=== PATIENT | female | born 1975 | race African-American/Black ===

== ENCOUNTER 2017-03-15 09:44 | Day surgery (SDC) | payer BC, OTHER ==
[2017-03-14 15:32] VITALS: BMI 36.0
[2017-03-15] MEDS ORDERED: PROPOFOL 20 ML ONE (10:36)
[2017-03-15] MEDS ORDERED: ROCURONIUM BROMIDE 50 MG/5 ML VIAL ONE ×2 (10:36)
[2017-03-15] MEDS ORDERED: MIDAZOLAM HCL 2 MG/2 ML SINGLE DOSE VIAL ONE (10:36)
[2017-03-15] MEDS ORDERED: fentaNYL CITRATE 250 MCG/5 ML VIAL ONE (10:36)
[2017-03-15] MEDS ORDERED: BUPIVACAINE HCL/PF 0.5% (5MG/ML) 10 ML VIAL ONE (11:09)
--- NOTE | 2017-03-15 11:16 | PREOP ---
DATE OF ADMISSION: 03/15/2017 CHIEF COMPLAINT: Morbid obesity. HISTORY OF PRESENT ILLNESS: The patient is a 41-year-old woman with a history of morbid obesity for many years despite multiple attempts at dietary weight loss. She also has some hypertension associated with her obesity. She received nutritional, psychological, and cardiac evaluation and clearance prior to undergoing an elective laparoscopic gastric band surgery. PAST MEDICAL HISTORY: Significant for hypertension. MEDICATIONS: Include Bystolic, losartan, potassium. ALLERGIES: She has no known allergies. REVIEW OF SYSTEMS: Neurologic: Within normal limits. Cardiac: Within normal limits. Lungs: Within normal limits. Gastrointestinal: Within normal limits. Musculoskeletal: Within normal limits. PHYSICAL EXAMINATION: General: Awake and alert in no acute distress. HEENT: No masses palpated. Lungs: Clear bilaterally. Heart: Regular sinus rhythm. Abdomen: Positive for obesity. Soft, nontender on palpation in all quadrants. Extremities: No signs of any swelling. No edema. The patient had elevated liver function tests on admission significant for fatty liver. IMPRESSION: Morbid obesity. PLAN: To OR for laparoscopic gastric band. Sommer [id number]
[2017-03-15] MEDS ORDERED: ceFAZolin SODIUM 1 GM VIAL IVPB ONE (11:37)
[2017-03-15] MEDS ORDERED: NEOSTIGMINE METHYLSULFATE 0.5 MG/ML - 10 ML MDV ONE (12:11)
[2017-03-15] MEDS ORDERED: BUPIVACAINE HCL/PF (5 MG/ML) 30 ML VIAL IJ ONE (12:23)
[2017-03-15] MEDS ORDERED: TRIMETHOBENZAMIDE HCL 200MG/2ML INJ IM PRN (12:36)
[2017-03-15] MEDS ORDERED: ONDANSETRON 4 MG/2 ML VIAL IVPUSH PRN ×2 (12:36→13:03)
[2017-03-15] MEDS ORDERED: ENOXAPARIN NA (PORCINE) 40 MG/0.4 ML DISP.SYRIN SQ ONE ×3 (12:36→14:06)
[2017-03-15] MEDS ORDERED: HYDROmorphone HCL CARPU-JECT 1 MG/1 ML DISP.SYRIN IVPB PRN (12:38)
[2017-03-15] MEDS ORDERED: SODIUM CHLORIDE 1,000 ML IV SCH (12:45)
--- NOTE | 2017-03-15 12:45 | OP ---
Operative Note - Note: Operative Date: 03/15/17 Pre-Operative Diagnosis: Morbid Obesity. Hypertension. Elevated Liver Function Tests Operation: Laparoscopic Gastric Band. Wedge Biopsy of Liver. Diagnostic Laparoscopy Findings: 30 cc proximal gastric pouch created with APS band. Implants: Lap band plus sub-Q port Post-Operative Diagnosis: Same as Pre-op (Hepatomegaly) Surgeon: Wallace Martino Thermograph Operator: Evens Foster Anesthesia: General Estimated Blood Loss (mls): 30 Operative Report Dictated: Yes
[2017-03-15] MEDS ORDERED: hydrALAZINE HCL 20 MG/ML VIAL ONE (12:50)
[2017-03-15] MEDS ORDERED: hydrALAZINE HCL 20 MG/ML VIAL IVPUSH ONE ×4 (12:55→14:03)
[2017-03-15] MEDS ORDERED: oxyCODONE HCL 5 MG TABLET PO PRN (13:03)
[2017-03-15] MEDS ORDERED: LACTATED RINGERS SOLUTION 1,000 ML IV SCH (13:15)
--- NOTE | 2017-03-15 13:24 | OP ---
DATE OF OPERATION: 03/15/2017 PREOPERATIVE DIAGNOSES: 1. Morbid obesity. 2. Hypertension. 3. Elevated liver function tests. POSTOPERATIVE DIAGNOSES: 1. Morbid obesity. 2. Hypertension. 3. Elevated liver function tests. 4. Hepatomegaly. PROCEDURE PERFORMED: 1. Gastric band for gastric restriction. 2. Wedge biopsy of the left lobe of the liver. 3. Diagnostic laparoscopy. OPERATING SURGEON: Wallace Martino MD CAFE SITE ATTENDANT: Evens Foster MD ANESTHESIA: General. ESTIMATED BLOOD LOSS: 30 mL. DESCRIPTION OF PROCEDURE: The patient was brought into the operating room, placed on the OR table in a supine position. All precautions were taken initially including padding for the back and the feet, and Venodyne boots were placed on both lower extremities. At that point, the abdomen was prepped and draped in the usual manner. A Veress needle was placed in the left upper quadrant, and a pneumoperitoneum was established. A No. 12 bladeless trocar was placed to the left upper quadrant. Through that trocar, a laparoscopic camera was placed. Under direct vision, a No. 15 and 5 bladeless trocars were placed in the right upper quadrant, and a No. 12 bladeless trocar below the left costal margin. A Leesa liver retractor was then placed to the epigastrium to retract the left lobe of the liver. The left lobe was extremely enlarged, and a with a combination with elevated liver function tests preoperatively, it was decided that a wedge biopsy would be performed. With the electrocautery turned high first the capsule then the parenchyma of the inferior edge of the left lobe of the liver was scored with electrocautery, and dissection continued through the parenchyma. A specimen was sent off the field to pathology as a specimen for a liver biopsy. The minor parenchymal bleeding that remained was controlled easily with electrocautery. The patient was then placed in 20-degree reverse Trendelenburg by Anesthesia. Electrocautery was then used to score the peritoneum over the left esophagogastric junction. This was made doable because the staffing assistant surgeon retracted the omentum inferiorly as the operating surgeon retracted the stomach toward the patient's right side. The electrocautery continued to dissect the left esophagogastric junction until the left deng of the diaphragm was noted. At this point, the stomach was pulled to the patient's left side by the staffing assistant surgeon as the operating surgeon located the caudate lobe of the liver. An opening was made in the avascular plane and then attention was directed to the right deng of the diaphragm. Electrocautery was used to score the peritoneum anterior to the right deng, and then a laparoscopic instrument was then used to make a blunt tunnel from the right to the left deng until it was free in the left upper quadrant of the abdomen. The gastric band, which was an 8-piece standard band, was then prepped by the OR team and placed with a No. 15 port site. The band tube was placed with a laparoscopic instrument, which was pulled and withdrawn to the patient's right side. The band tube was placed into the band buckle, which was tied or cinched down, and the band was rotated to the patient's right side. A laparoscopic instrument easily fit between the band and anterior stomach wall. The band was then sewn in place with the Endo Stitch grabbed by the stomach serosa above and below the band and tied over the band. When it was completed, the band tubing was withdrawn through the No. 15 port site under direct vision. All trocars were removed and pneumoperitoneum released. The No. 15 port site was extended laterally, and dissection continued down the right anterior rectus muscle fascia. Then 2-0 Prolene sutures were placed in all four sides, and a port was then attached to the right anterior rectus muscle. All trocar sites received 0.25% Marcaine. They were closed with 4-0 Biosyn in subcuticular fashion except for the port site, which was first closed with 0 Vicryl in an interrupted fashion of the subcutaneous tissue followed by 4-0 Biosyn in subcuticular fashion. Dressings were applied. The patient was awoken from anesthesia and transferred out of the operating room to the recovery room in stable condition. Sommer [id number]
[2017-03-15 13:45] LABS: MCH 23.5 pg (25.7-33.7); MCHC 31.1 g/dl (32.0-36.0); MEAN CELL VOLUME 75.6 fl (80-96); MEAN PLT VOLUME 8.2 fl (7.5-11.1); PLATELET COUNT 308 K/MM3 (134-434); RDW 18.2 % (11.6-15.6); WHITE BLOOD COUNT 7.9 K/mm3 (4.0-10.0)
[2017-03-15] MEDS ORDERED: FAMOTIDINE 20 MG/50 ML IVPB 20 MG/50 ML MG IVPB ONE (14:01)
[2017-03-15] MEDS ORDERED: FAMOTIDINE 20 MG PREMIXED IVPB IVPB ONE (14:06)
[2017-03-15 14:40] LABS: ANION GAP 8 (8-16); CALCIUM 8.4 mg/dL (8.5-10.1); CO2 27 mmol/L (21-32); CREATININE 0.7 mg/dL (0.55-1.02); GLUCOSE,RANDOM 120 mg/dL (74-106)
[2017-03-15 15:36] VITALS: TEMP 98
[2017-03-15] MEDS ORDERED: oxyCODONE HCL 5 MG TABLET ONE (16:03)
[2017-03-15 18:12] VITALS: BP 135/79; PULSE 74
[2017-03-15] MEDS ORDERED: FAMOTIDINE 20 MG/50 ML IVPB 20 MG/50 ML MG IVPB SCH (22:00)
--- NOTE | 2017-03-16 15:07 | PATH ---
Surgical Pathology Report Patient Name: FREDIS GRAHAM [facility]. Rec. #: [id number] /Age/Gender: 1975 (Age: 41) / F Account: [id number] Location: [facility] SURGICAL Taken: 03/15/2017 Received: 03/15/2017 Reported: 03/16/2017 Physicians: Wallace Martino M.D. Specimen(s) Received LIVER BIOPSY Clinical History Operative diagnosis: Morbid obesity Final Diagnosis LIVER, BIOPSY: LIVER PARENCHYMA WITH MILD STEATOSIS (< 5%). NO INCREASE IN IRON OR FIBROSIS IN PERFORMED SPECIAL STAINS (IRON AND TRICHROME). Electronically Signed Arleen Payton M.D. Gross Description Received in formalin labeled "liver biopsy," is a 1.5 x 0.8 x 0.8 cm bethea-brown, irregular portion of soft tissue, consistent with liver tissue. The specimen is sectioned and entirely submitted in one cassette. 03/15/201703/15/2017
== END 2017-03-15 17:40 | disposition home or self-care (01) ==
LOC: JASU-SURG 09:44
PROVIDERS: ATTEND Surgery
PROC: 0FB24ZX Excision of Left Lobe Liver, Percutaneous Endoscopic Approach, Diagnostic (ICD-10-PCS; 2017-03-15)
PROC: 0DV64CZ Restriction of Stomach with Extraluminal Device, Percutaneous Endoscopic Approach (ICD-10-PCS; principal; 2017-03-15 10:30)
DX: E66.01 Morbid (severe) obesity due to excess calories (principal); I10 Essential (primary) hypertension; R16.0 Hepatomegaly, not elsewhere classified
CPT/HCPCS: 36415; 74241-TC; 80048; 84703; 85027; 86850; 86900; 86901; 88305-TC; 88313-TC; 94010; 94760